=== PATIENT | female | born 1985 | race Caucasian/White ===

== ENCOUNTER 2019-02-18 11:42 | Outpatient (CLI) | payer OTHER ==
[~2019-02-18] VITALS: Ht 162.6 cm; Wt 90.0 kg
--- NOTE | 2019-02-18 11:45 | NUR ---
1145- Pt arrives on unit ambulatory with Bassem cortez. Pt was sent over from the office after SVE was 3cm. Pt states she has had back pain and felt some tightening the past few days. States she has has spotting off and on but denies today. +FM. 1150- Pt into bed, EFM and TOCO on and tracing. SVE 3-480/-2, intact. Plan of care explained. Call light within reach.
[2019-02-18 12:16] VITALS: BP 123/88; PULSE 76; TEMP 97.9
[2019-02-18] MEDS ORDERED: CONCEPT DHA1 CAP PO (12:30)
--- NOTE | 2019-02-18 13:40 | NUR ---
1328- Plan of care discussed, discharge home. EFM and TOCO off. Pt up to change into street clothes. 1340- Discharge paperwork given and explained. Discussed early labor and when to return to hospital. Pt and deny questions at this time. Pt leaves unit ambulatory in stable condition.
[2019-02-18] MEDS ORDERED: TYLENOL 500MG500 MG PO (21:09)
== END 2019-02-18 13:40 | disposition home or self-care (01) ==
LOC: LDRO 11:42
DX: O99.89 Other specified diseases and conditions complicating pregnancy, childbirth and the puerperium (principal); M54.9 Dorsalgia, unspecified; Z3A.37 37 weeks gestation of pregnancy

== ENCOUNTER 2019-02-18 20:43 | Inpatient (IN) | payer OTHER ==
[~2019-02-18] VITALS: Ht 162.6 cm; Wt 90.0 kg
[~2019-02-18 20:43] MED LIST: CONCEPT DHA1 CAP PO
--- NOTE | 2019-02-18 20:50 | NUR ---
PT TO UNIT AMBULATORY WITH COMPLAINTS OF CONTRACTIONS. PT ACCOMPANIED BY SPOUSE. ORIENTED TO ROOM, EFM X2 APPLIED, VS OBTAINED, SVE PERFORMED.
[2019-02-18 21:05] VITALS: BP 124/83; PULSE 74
[2019-02-18] MEDS ORDERED: TYLENOL 500MG500 MG PO (21:09)
[2019-02-18 21:30] VITALS: BP 124/83; PULSE 74; TEMP 98.2
--- NOTE | 2019-02-18 22:47 | NUR ---
PT OFF MONITORS AT THIS TIME PER REQUEST TO GET IN THE SHOWER.
[2019-02-18 23:13] LABS: BASO % 0.2 % (0.0-2.0); EOS % 0.2 % (0-4.0); GRAN # 15.7 (1.4-6.5); GRAN % 86.2 % (42.2-75.2); HEMATOCRIT 35.5 % (37.0-47.0); LYMPH # 1.1 (1.2-3.4); LYMPH % 6.2 % (20.0-51.0); MEAN CELL VOLUME 90 fl (80.0-100.0); MEAN CORPUSCULAR HEMOGLOBIN 31 pg (27.0-31.0); MEAN CORPUSCULAR HGB CONC 34 g/dl (33.0-37.0); MEAN PLATELET VOLUME 10.5 fl (7.4-10.4); MONO # 1.2 (0.1-0.6); MONO % 6.7 % (1.7-9.3); PLATELET COUNT 235 K/mm3 (130-400); RED BLOOD COUNT 3.94 M/mm3 (4.10-5.30); REDCELL DISTRIBUTION WIDTH-CV 12.2 % (11.5-14.5)
[2019-02-19] VITALS (44 sets, daily range): BP systolic 87–149; BP diastolic 52–88; PULSE 75–133; TEMP 97.6–98.8
--- NOTE | 2019-02-19 00:07 | NUR ---
PT OFF MONITOR TO GET IN HOTTUB. HOTTUB TEMP AT 97.7.
--- NOTE | 2019-02-19 01:18 | NUR ---
0045- PT OUT OF HOTTUB PER REQUEST. TO BATHROOM. PT REQUESTING EPIDURAL PLACEMENT. TIM MORALES NOTIFIED OF REQUEST AND IS COMING IN FOR PLACEMENT. 0049- CONTINUOUS MONITORING RESUMED. VS STABLE. 0107- Moi STUART CRNA IN ROOM FOR EPIDURAL PLACEMENT. PT TO SITTING POSITION ON SIDE OF BED, TIMEOUT PERFORMED. 0114- SINGLE SHOT GIVEN BY Moi STUART CRNA. PT TOLERATED WELL. 0118- PT REPOSITIONED IN SEMIFOWLERS. INSTRUCTED ON USE OF EPIDURAL BUTTON BY THIS NURSE AND Moi STUART CRNA, UNDERSTANDING VERBALIZED. PLAN OF CARE DISCUSSED, QUESTIONS ENCOURAGED AND ANSWERED.
--- NOTE | 2019-02-19 04:45 | NUR ---
DIFFICULTY TRACING CONTRACTION PATTERN DUE TO MATERNAL POSITION IN LEFT LATERAL WITH LEG IN THE STIRRUP.
--- NOTE | 2019-02-19 09:22 | NUR ---
0810 SVE - complete/+1. Dr. Weston notified. Patient prepped for pushing. 819 Patient begins to push with contractions. 914 Dr. Weston on unit and called to patient room. Patient prepped for delivery. 921 Spontaneous vaginal delivery of viable male infant by Dr. Weston. Cord clamped and cut and to the care of the nursery RN. 924 Spontaneous delivery of placenta by Dr. Weston. Pitocin infusing at 333ml/hr per orders and protocol. Fundus firm, lochia WNL. Repair of 2nd degree perineal laceration by Dr. Weston.
[2019-02-20] VITALS: BP 110/66; PULSE 78; TEMP 98.8
[2019-02-20 07:25] VITALS: BP 95/60; PULSE 77; TEMP 97.6
[2019-02-20 16:00] VITALS: BP 107/70; PULSE 93; TEMP 98.3
[2019-02-20 21:50] VITALS: BP 108/67; PULSE 77; TEMP 98.1
[2019-02-21 08:08] VITALS: BP 112/68; PULSE 72; TEMP 98.1
[2019-02-21] MEDS ORDERED: PERCOCET 325 MG1 TA2 PO (10:38)
[2019-02-21] MEDS ORDERED: IBU800 M1 PO (10:38)
== END 2019-02-21 11:10 | disposition home or self-care (01) | DRG 807 ==
LOC: LDRO 20:43 → OB 23:33 → LDR 23:33 → OB 02-19 11:56
PROVIDERS: Obstetrics & Gynecology; ADMIT Obstetrics & Gynecology
PROC: 10E0XZZ Delivery of Products of Conception, External Approach (ICD-10-PCS; principal; 2019-02-19)
PROC: 0KQM0ZZ Repair Perineum Muscle, Open Approach (ICD-10-PCS; 2019-02-19)
DX: O70.1 Second degree perineal laceration during delivery (principal); Z37.0 Single live birth; Z3A.37 37 weeks gestation of pregnancy; O69.81X0 Labor and delivery complicated by cord around neck, without compression, not applicable or unspecified; Z88.6 Allergy status to analgesic agent
CPT/HCPCS: J2590; J2795; J7120

== ENCOUNTER → 2019-02-24 | Outpatient (CLI) | payer OTHER ==
[~2019-02-24] MED LIST changes: +IBU800 M1 PO; +PERCOCET 325 MG1 TA2 PO; +TYLENOL 500MG500 MG PO
--- NOTE | 2019-02-24 14:12 | NUR ---
Pt, Bety Patel, presents for outpatient consult with five day old baby boy, Ga Ham, and FOB, Bassem Ham. They scheduled a consult because Ga has not been latching, and she is concerned about low milk supply. Ga was born on [birth year] by to this first time parent and weighed 8#3oz (3715 gms). Discharge weight was 7#13.8oz (3565 gms). During the hospital stay Pt elected to bottle feed after attempting because she was fearful of not having milk. Pt was educated by staff about normal milk production and encouraged to continue pumping after discharge to help establish milk supply. Pt was advised to pump 8x/24 hours when she called to schedule this consult, she states she has been able to pump about 6 times daily and collects <5ml when she pumps. Ga has been bottle fed, 2-3oz every 2-3 hours. His voids and stools are WNL. Today's weight is 7#15.7oz (3622 gms). Pt reports she feels her breasts are filling up, but she is not getting relief with the pump and he is not latching at home. LC attempts to get Ga latched, breast tissue is firm and may be a contributing factor to him not being able to remain latched. A nipple shield is placed and he does nurse better with swallows noted. After nursing bilaterally, Ga has a weight gain of 20 gms (0.7oz), 18 on the right and 2 on the left. Pt provided opportunity to pump with hospital grade breastpump and sees much better results, collecting 60ml. Ga is fed 2oz formula by bottle and 1oz EBM after pump; he seems to tolerate it well without spit up. POC: Offer breast each feeding as desired, use shield if necessary Supplement about 2-3oz after . Pump after each , saving milk for next supplement. Herbal supplements and handout for increasing milk supply also reviewed. F/U: ThursdayFebruary 28 @ 1300 with this LC. Pt and FOB verbalize understanding, questions invited and answered.
== END ==
LOC: LAC 13:06
DX: Z39.1 Encounter for care and examination of lactating mother (principal); Z71.89 Other specified counseling

== ENCOUNTER → 2019-02-28 | Outpatient (CLI) | payer OTHER ==
--- NOTE | 2019-02-28 13:36 | NUR ---
Pt, Bety Patel, presents for outpatient consult with 9 day old baby boy, Ga Paulino, and her spouse Bassem Paulino, for a follow up consult. They were last seen four days ago by this LC for poor latching and low milk supply. Ga was born on [birth year] and weighed 8#3oz (3714 gms). On 02/24/19 he weiged 7#15.7oz (3620 gms). They have been following the feeding plan reviewed, however she has only been able to get Ga to latch well 4 times over the last 4 days. Pt continues pumping about 6 times per day and collects 0.5-1oz per pump, generally. She has ordered herbal supplements but is not using any yet. Today Ga weighs 8#4.3oz (3750 gms). Pt is assisted with latching as she has difficulty coordinating angle and deep latch. After nursing the right side for about 10 min he has a gain of 10 gms; after the left side a again of 12 gms for a total gain of 22gms (0.7oz). POC: Continue 3-step feeding plan, add power pumping 1x/day, add herbal supplements. F/U: one week, ThursdayMarch 07 @ 1300. Questions invited and answered.
== END ==
LOC: LAC 13:09
DX: Z39.1 Encounter for care and examination of lactating mother (principal); Z71.89 Other specified counseling

== ENCOUNTER → 2019-03-07 | Outpatient (CLI) | payer OTHER ==
--- NOTE | 2019-03-07 13:31 | NUR ---
Pt, Michael Patel, presents for follow up consult with 16 day old baby boy, Ga Paulino, and her spouse Bassem Paulino. They have been working with this for difficult latch and low milk supply. Ga was born on [birth year] and weighed 8#3oz (3714 gms). Last week he weighed 8#4.3oz (3751 gms). Today Ga weighs 8#14.5oz (04843 gms). Pt has been pumping and bottle feeding rather than directly, she states they have had a lot of company. She reports pumping 8 times daily, collecting about 1.5oz per pumping. She started using Fenugreek to help with supply. She has power pumped a couple times and gotten 3oz. Pt encouraged to power pump more regularly. Ga drinks 3oz q 2-3 hours so she is using about 50/50 ration of breastmilk to formula. Pt desires to breastfeed directly. PT struggles with coordinating latch; LC can easily get baby latched and instructs pt on how to present breast and bring mouth over the nipple. Pt practices several times and eventually latches him independantly. After on the right side Ga has a weight gain of 32 gms (1.1oz), after the left he gained 12 gms for a total gain of 44gms (1.6oz). Last week he transfered 0.7oz, so noticable improvement. Pt verbalizes desire to try a " vacation" where she would keep him at the breast very frequently to try to improve supply. Discussed that going completely off supplement may be difficult for him, advised to supplement about 1oz four times per day to easy the transition. Pt also aware if she feels he is not thriving with the vacation she can revert back to with regular supplement. POC: Breastfeed ad kierra, working with " vacation". Supplement as advised as baby makes transition. Continue to work in power pumping daily. F/U: Pt anticipates doing a weight check at walk-in clinic next Thursday, then will be traveling. Questions invited and answered.
== END ==
LOC: LAC 13:10
DX: Z39.1 Encounter for care and examination of lactating mother (principal); Z71.89 Other specified counseling